=== PATIENT | male | born 1950 ===

== ENCOUNTER 2017-12-11 08:48 | Day surgery (SDC) | END 2017-12-11 11:30 | disposition home or self-care (01) ==

== ENCOUNTER 2020-09-27 08:34 | Day surgery (SDC) | payer MEDICARE, BC ==
[~2020-09-27] VITALS: Ht 172.7 cm; Wt 72.7 kg
[~2020-09-27 08:34] MED LIST: ATEN50; ATEN50 PO; BENTYL10 MG; EUTHYROX50 MCG PO; Hair, Skin & N1 EACH PO; LEVSIN PO; LOSA50; LOSA50 PO; OMEPRAZOLE20 M1 PO; Omeprazole20 M1; SIMV10; Zocor20 MG PO
--- NOTE | 2020-09-27 10:44 | NUR ---
09/27/20 1044 Linda Juan PATIENT REFUSED MULTIPLE OFFERS OF SOMETHING TO DRINK. WHEN ASKED HE STATED NO PAIN OR DIFFICULTY SWALLOWING.PATIENT DISCHARGED IN STABLE CONDITION
== END 2020-09-27 10:35 | disposition home or self-care (01) ==
LOC: ORSCSDS 08:34
DX: R10.9 Unspecified abdominal pain (principal); K92.1 Melena; K31.89 Other diseases of stomach and duodenum; K57.30 Diverticulosis of large intestine without perforation or abscess without bleeding; K64.8 Other hemorrhoids; I10 Essential (primary) hypertension; Z86.010 Personal history of colon polyps; R73.03 Prediabetes; Z87.891 Personal history of nicotine dependence; Z79.899 Other long term (current) drug therapy
CPT/HCPCS: 88305; 88341; 88342; J2704; J7120